=== PATIENT | female | born 1995 | race Caucasian/White ===

== ENCOUNTER → 2020-02-27 10:28 | Outpatient (BNVA) | payer BC, SELFPAY | PROVIDERS: Family Provider Nurse Practitioner Family; PCP Nurse Practitioner Family; Visit Provider Nurse Practitioner Family | DX: R22.1 Localized swelling, mass and lump, neck (principal) | CPT/HCPCS: 84439; 84443; 84481; 86376 ==

== ENCOUNTER 2020-03-21 07:00 | Outpatient (CLI) | payer BC, SELFPAY ==
--- NOTE | 2020-03-21 07:15 | US_ITS ---
WS: [id number] THYROID ULTRASOUND (TI-RADS CRITERIA) History: Neck lump.. Technique: Ultrasound examination of the thyroid and adjacent soft tissues is performed. FINDINGS: Right lobe: 5.8 cm x 2.5 cm x 1.6 cm. Volume: 12.3 cm3. Mildly enlarged thyroid. Left lobe: 5.8 cm x 1.9 cm x 1.5 cm. Volume: 8.7 cm3. Mildly enlarged thyroid. Isthmus: 0.2 cm. Estimated total number of nodules greater than or equal to 1 cm: 1 (LEFT). Number of spongiform nodules greater than or equal to 2 cm not described below (TR1): Multiple bilate rally. Number of mixed cystic and solid nodules greater than or equal to 1.5 cm not described below (TR2): 0 . NODULE: #1 on the RIGHT. Size: 0.6 x 1.0 x 1.1 cm. Location: Mid gland. Composition: Cystic/almost completely cystic (0) Echogenicity: Isoechoic (1) Shape: Not taller than wide (0) Margins: Smooth (0) Echogenic foci: None (0) ACR TI-RADS total points: 1 ACR TI-RADS risk category: Benign. No FNA. US/US thyroid [id number] Impression: TR1 Recommendation:No FNA or follow-up. Bilateral colloid nodules. No suspicious mass or solid nodule for follow-up.
== END 2020-03-21 07:01 | disposition home or self-care (01) ==
PROVIDERS: PCP Nurse Practitioner Family; Visit Provider Nurse Practitioner Family
DX: R22.1 Localized swelling, mass and lump, neck (principal)
CPT/HCPCS: 76536